=== PATIENT | female | born 1950 ===

== ENCOUNTER 2017-05-22 21:32 | Emergency (ER) | payer MEDICARE ==
[2017-05-22 21:32] VITALS: BMI 25.8
[2017-05-22 22:07] VITALS: O2SAT 99
[2017-05-22 23:39] LABS: ALB/GLOB RATIO 1.3 (1.0-2.1); ALKALINE PHOSPHATASE 73 U/L (38-126); ALT/SGPT 33 U/L (9-52); AST/SGOT 40 U/L (14-36); BASO % 0.5 % (0.0-2.0); BILIRUBIN,TOTAL 0.6 mg/dl (0.2-1.3); BLOOD UREA NITROGEN 22 mg/dl (7-17); CALCIUM 9.7 mg/dL (8.4-10.2); CARBON DIOXIDE 26 mmol/L (22-30); CHLORIDE 102 mmol/L (98-107); EOS # 0.2 K/uL (0.0-0.7); EOS % 3.6 % (0.0-4.0); GFR AFRICAN-AMERICAN > 60; GLUCOSE,RANDOM 99 mg/dL (65-105); LYMPH # 1.2 K/uL (1.0-4.3); LYMPH % 18.7 % (20.0-40.0); MAGNESIUM 1.9 MG/DL (1.6-2.3); MEAN CELL VOLUME 88.9 fl (81.0-99.0); MEAN CORPUSCULAR HEMOGLOBIN 30.2 pg (27.0-31.0); MEAN PLATELET VOLUME 9.2 fl (7.2-11.7); MONO # 0.7 K/uL (0.0-0.8); MONO % 11.3 % (0.0-10.0); NEUT # 4.2 K/uL (1.8-7.0); NEUT % 65.9 % (50.0-75.0); PHOSPHOROUS 3.5 mg/dl (2.5-4.5); POTASSIUM 3.9 MMOL/L (3.6-5.0); RED CELL DISTRIBUTION WIDTH 13.4 % (11.5-14.5); SODIUM 140 mmol/l (132-148); TOTAL PROTEIN 7.5 G/DL (6.3-8.2); WHITE BLOOD COUNT 6.3 K/uL (4.8-10.8)
--- NOTE | 2017-05-23 00:07 | ED PDOC ---
HPI: Hypertension/Hypotension Time Seen by Provider: 05/22/17 22:15 Chief Complaint (Nursing): High Blood Pressure Chief Complaint (Provider): high blood pressure History Per: Patient History/Exam Limitations: no limitations Onset/Duration Of Symptoms: Days (2) Associated Symptoms: Headache (mild this morning). denies: Chest Pain, Dyspnea , Dizziness, Blurred Vision, Focal Weakness Past Medical History Reviewed: Historical Data, Nursing Documentation, Vital Signs Vital Signs: Last Vital Signs Temp 98 F 05/22/17 22:01 Pulse 68 05/22/17 22:01 Resp 18 05/22/17 22:01 BP 188/76 H 05/22/17 22:01 Pulse Ox 99 05/22/17 22:01 - Medical History PMH: Arthritis, Diverticulitis, HTN, Hypercholesterolemia, Osteoporosis, TIA Denies: CHF, COPD, Diabetes, Hepatitis, HIV, Hypothyroidism, Chronic Kidney Disease, Rheumatoid Arthritis, Seizures, Sexually Transmitted Disease - Surgical History Surgical History: Cholecystectomy - Family History Family History: States: Unknown Family Hx - Social History Current smoker - smoking cessation education provided: No - Home Medications Home Medications: Ambulatory Orders Medication Instructions Recorded Alendronate [Fosamax] 70 mg PO SAT 10/27/15 Pantoprazole Sodium [Protonix] 40 mg PO DAILY 10/27/15 Aspirin [Aspirin Chewable] 81 mg PO DAILY #0 chew 10/28/15 Atorvastatin [Lipitor] 20 mg PO HS #0 tab 10/28/15 ALPRAZolam [Xanax] 0.25 mg PO TID PRN 12/15/15 Azilsartan Med/Chlorthalidone 1 tab PO DAILY 12/15/15 [Edarbyclor 40-25 mg Tablet] Multivitamin/Iron/Folic Acid 1 tab PO DAILY 12/15/15 [Centrum Complete Multivit Tab] - Allergies Allergies/Adverse Reactions: Allergies Allergy/AdvReac Type Severity Reaction Status Date / Time No Known Allergies Allergy Verified 10/27/15 15:21 Review of Systems ROS Statement: Except As Marked, All Systems Reviewed And Found Negative (and as per HPI) Neurological: Positive for: Headache Physical Exam - Reviewed Nursing Documentation Reviewed: Yes Vital Signs Reviewed: Yes - Physical Exam Appears: Positive for: Well, No Acute Distress Head Exam: Positive for: ATRAUMATIC, NORMOCEPHALIC Skin: Positive for: Warm, Dry Eye Exam: Positive for: EOMI, PERRL ENT: Negative for: Pharyngeal Erythema, Tonsillar Exudate Neck: Positive for: Painless ROM, Supple Cardiovascular/Chest: Positive for: Regular Rate, Rhythm, Chest Non Tender. Negative for: Murmur Respiratory: Positive for: Normal Breath Sounds. Negative for: Wheezing Gastrointestinal/Abdominal: Positive for: Soft. Negative for: Tenderness Back: Positive for: Normal Inspection. Negative for: Decreased ROM Extremity: Positive for: Normal ROM. Negative for: Deformity Lymphatic: Negative for: Adenopathy Neurologic/Psych: Positive for: Alert. Negative for: Motor/Sensory Deficits - Laboratory Results Result Diagrams: 05/22/17 23:21 05/22/17 23:21 - ECG ECG: Positive for: Interpreted By Me ECG Rhythm: Positive for: Normal QRS, Normal ST Segment, Sinus Rhythm O2 Sat by Pulse Oximetry: 99 Pulse Ox Interpretation: Normal - Progress ED Course And Treament: Labs unremarkable. BP normalizing without intervention Disposition - Clinical Impression Clinical Impression: Hypertension Counseled Patient/Family Regarding: Studies Performed, Diagnosis - Disposition Referrals: Ned Dunbar MD [Staff Provider] - 05/24/17 Disposition: Routine/Home Disposition Time: 00:10 Condition: STABLE Instructions: Hypertension (ED) Forms: [facility] (Faroese)
[2017-05-23 00:18] LABS: THYROID STIMULATING HORMONE 4.48 mIU/ML (0.46-4.68)
[2017-05-23 00:27] VITALS: BP 140/87; PULSE 60; RESP 16; TEMP 97.7
--- NOTE | 2017-05-24 01:16 | CARD ---
APPROVED REPORT EKG Measurement Heart [id number] <Conclusion> Sinus bradycardia Incomplete right bundle branch block Borderline ECG
== END 2017-05-23 00:30 | disposition home or self-care (01) ==
LOC: H.ER 21:32
DX: I10 Essential (primary) hypertension (principal); Z86.73 Personal history of transient ischemic attack (TIA), and cerebral infarction without residual deficits